=== PATIENT | female | born 1990 | race Hispanic/Latino ===

== ENCOUNTER 2018-04-13 19:09 | Inpatient (IN) | payer MEDICAID, OTHER ==
[~2018-04-13] VITALS: Ht 165.1 cm; Wt 111.1 kg
[2018-04-13 19:29] LABS: BASOPHILS % (AUTO) 0.5 % (0.0-5.0); EOSINOPHILS % (AUTO) 0.1 % (0.0-8.0); HEMATOCRIT 41.4 % (36-48); LYMPHOCYTES % (AUTO) 15.2 % (21.0-51.0); MEAN CORPUSCULAR HEMOGLOBIN 28.9 pg (27.0-33.0); MEAN CORPUSCULAR HGB CONC 34.6 g/dL (32.0-36.0); MEAN CORPUSCULAR VOLUME 83.5 fL (79-99); MONOCYTES % (AUTO) 5.6 % (3.0-13.0); NEUTROPHILS % (AUTO) 78.6 % (40.0-77.0); PLATELET COUNT (AUTO) 160 K/uL (130-400); RED BLOOD CELL COUNT(AUTO) 4.96 MIL/uL (4.00-5.50); RED CELL DISTRIBUTION WIDTH 14.2 % (11.0-15.5); WHITE BLOOD COUNT (AUTO) 12.6 K/uL (4.8-10.8)
[2018-04-13] MEDS ORDERED: CEFTRIAXONE SODIUM 2 GM VIAL ONE (19:34)
[2018-04-13] MEDS ORDERED: ACETAMINOPHEN EXTRA STRENGTH 500 MG TABLET ONE (19:34)
[2018-04-13] MEDS ORDERED: SODIUM CHLORIDE 0.9% 50 ML IV ONE (19:34)
[2018-04-13 19:49] LABS: APPEARANCE,URINE CLEAR (CLEAR); BILIRUBIN,URINE NEGATIVE (NEGATIVE); COLOR,URINE YELLOW (YELLOW); GLUCOSE, URINE (UA) NEGATIVE (NEGATIVE); KETONES,URINE NEGATIVE (NEGATIVE); LEUKOCYTE ESTERASE ,URINE NEGATIVE (NEGATIVE); NITRATE,URINE NEGATIVE (NEGATIVE); OCCULT BLOOD,URINE NEGATIVE (NEGATIVE); PH,URINE 7.5 (5.0-8.0); PROTEIN,URINE NEGATIVE (NEGATIVE)
[2018-04-13 19:53] LABS: HCG,QUAL RESULT NEGATIVE (NEGATIVE)
[2018-04-13] MEDS ORDERED: SODIUM CHLORIDE 0.9% 1000ML 3,000 ML IV ONE (19:53)
[2018-04-13 20:11] LABS: RAPID GROUP A STREP NEGATIVE (NEGATIVE)
[2018-04-13 20:19] LABS: CREATININE 0.9 mg/dL (0.5-1.5); POTASSIUM 3.8 mmol/L (3.5-5.1)
[2018-04-13 20:24] LABS: ALBUMIN 3.8 g/dL (3.5-5.0); BILIRUBIN,TOTAL 0.7 mg/dL (0.2-1.0); TOTAL PROTEIN, SERUM 7.5 g/dL (6.0-8.3)
[2018-04-13] MEDS ORDERED: ONDANSETRON HCL 4 MG/2 ML VIAL ONE (22:52)
[2018-04-13] MEDS ORDERED: MORPHINE SULFATE 4 MG/1ML SYG ONE (22:53)
[2018-04-13 23:26] LABS: GLUCOSE, CSF 68 mg/dL (40-70); TOTAL PROTEIN, CSF 35 mg/dL (15-45)
[2018-04-13 23:51] LABS: APPEARANCE,CSF HAZY (CLEAR); COLOR,CSF PINK (COLORLESS); CSF TUBE NUMBER 1
[2018-04-13 23:52] LABS: CSF BASOPHIL1 0 %; CSF BLAST1 0 %; LYMPHOCYTES1,CSF 47 %; MONOCYTES1,CSF 3 %; NEUTROPHILS1,CSF 50 %; RED BLOOD CELL1,CSF 1368 CMM (0-0); WHITE BLOOD CELL1,CSF 36 CMM (0-5)
[2018-04-14 02:24] VITALS: BP 147/99
[2018-04-14] MEDS ORDERED: ONDANSETRON HCL MDV 20ML 2 MG/ML VIAL IVP PRN (02:45)
[2018-04-14] MEDS: SODIUM CHLORIDE 0.9% 1000ML 1,000 ML IV SCH ×2 (03:00→12:29)
[2018-04-14] MEDS: MORPHINE SULFATE 4 MG/1ML SYG IVP PRN ×4 (03:11→20:54)
[2018-04-14] MEDS: IPRATROPIUM/ALBUTEROL SULFATE 3 ML SOLUTION IH SCH ×5 (06:35→21:55)
[2018-04-14] MEDS: ACETAMINOPHEN 325 MG TAB PO PRN (07:32)
[2018-04-14 08:00] VITALS: BP 135/72
[2018-04-14] MEDS ORDERED: WATER FOR INJECTION,STERILE 20 ML VIAL IVP SCH (09:00)
[2018-04-14 09:28] LABS: HEMATOCRIT 38.9 % (36-48); MEAN CORPUSCULAR HEMOGLOBIN 29.5 pg (27.0-33.0); MEAN CORPUSCULAR HGB CONC 34.9 g/dL (32.0-36.0); MEAN CORPUSCULAR VOLUME 84.5 fL (79-99); NUCLEATED RED BLOOD CELLS 0.1 % (0.0-0.19); PLATELET COUNT (AUTO) 138 K/uL (130-400); RED BLOOD CELL COUNT(AUTO) 4.61 MIL/uL (4.00-5.50); RED CELL DISTRIBUTION WIDTH 14.2 % (11.0-15.5)
[2018-04-14] MEDS: ENOXAPARIN SODIUM 40 MG/0.4 ML SYRINGE SQ SCH (09:29)
[2018-04-14] MEDS: FAMOTIDINE/PF 20 MG/2 ML VIAL IV SCH ×2 (09:30→20:54)
[2018-04-14] MEDS: CEFTRIAXONE SODIUM 2 GM VIAL IVP SCH (09:31)
[2018-04-14 09:42] LABS: CREATININE 0.8 mg/dL (0.5-1.5); POTASSIUM 3.5 mmol/L (3.5-5.1)
[2018-04-14 09:44] LABS: HEMOGLOBIN A1C 5.5 % (4.0-6.0)
[2018-04-14 11:00] VITALS: BP 139/76
[2018-04-14] MEDS: ONDANSETRON HCL 4 MG/2 ML VIAL IVP PRN (11:03)
[2018-04-14 16:00] VITALS: BP 123/66
[2018-04-14 20:00] VITALS: BP 129/68
[2018-04-15] VITALS (7 sets, daily range): BP systolic 108–142; BP diastolic 53–86
[2018-04-15] MEDS: IPRATROPIUM/ALBUTEROL SULFATE 3 ML SOLUTION IH SCH ×6 (01:10→22:15)
[2018-04-15] MEDS: ACETAMINOPHEN 325 MG TAB PO PRN (01:20)
[2018-04-15] MEDS ORDERED: POTASSIUM CHLORIDE 20MEQ/100ML 100 ML IV PRN (02:00)
[2018-04-15] MEDS ORDERED: POTASSIUM CHLORIDE 10% ELIXIR 20 MEQ/15 ML UDCUP PO PRN (02:00)
[2018-04-15] MEDS ORDERED: KETOROLAC TROMETHAMINE 30MG/ML IM PRN (02:00)
[2018-04-15] MEDS ORDERED: LIDOCAINE HCL-MPF 1% 2ML VIAL IVP PRN (02:00)
[2018-04-15] MEDS ORDERED: POTASSIUM CHLORIDE 20 MEQ ERTAB PO PRN (02:00)
[2018-04-15] MEDS ORDERED: GUAIFENESIN-DM 200/20 MG 10 ML ONE (02:01)
[2018-04-15] MEDS: SODIUM CHLORIDE 0.9% 1000ML 1,000 ML IV SCH ×2 (02:03→12:28)
[2018-04-15 07:10] LABS: BASOPHILS % (AUTO) 0.2 % (0.0-5.0); EOSINOPHILS % (AUTO) 0.2 % (0.0-8.0); LYMPHOCYTES % (AUTO) 27.5 % (21.0-51.0); MEAN CORPUSCULAR HEMOGLOBIN 28.8 pg (27.0-33.0); MEAN CORPUSCULAR HGB CONC 34.2 g/dL (32.0-36.0); MEAN CORPUSCULAR VOLUME 84.1 fL (79-99); MONOCYTES % (AUTO) 7.9 % (3.0-13.0); NEUTROPHILS % (AUTO) 64.2 % (40.0-77.0); PLATELET COUNT (AUTO) 117 K/uL (130-400); RED BLOOD CELL COUNT(AUTO) 4.64 MIL/uL (4.00-5.50); WHITE BLOOD COUNT (AUTO) 5.4 K/uL (4.8-10.8)
[2018-04-15 07:25] LABS: CREATININE 0.7 mg/dL (0.5-1.5); POTASSIUM 3.7 mmol/L (3.5-5.1)
[2018-04-15] MEDS: CEFTRIAXONE SODIUM 2 GM VIAL IVP SCH (08:25)
[2018-04-15] MEDS: FAMOTIDINE/PF 20 MG/2 ML VIAL IV SCH ×2 (08:25→22:58)
[2018-04-15] MEDS: ENOXAPARIN SODIUM 40 MG/0.4 ML SYRINGE SQ SCH (08:26)
[2018-04-15] MEDS: KETOROLAC TROMETHAMINE 30MG/ML IV PRN ×3 (08:26→22:58)
[2018-04-15] MEDS: GUAIFENESIN-DM 200/20 MG 10 ML PO PRN ×3 (08:41→16:42)
[2018-04-15] MEDS: CEFEPIME HCL 1 GM VIAL IVP SCH (16:41)
[2018-04-15] MEDS ORDERED: CEFEPIME 1GM+NS 50ML 50 ML IV SCH (22:00)
[2018-04-15] MEDS: ONDANSETRON HCL 4 MG/2 ML VIAL IVP PRN (22:57)
[2018-04-15] MEDS: DOXYCYCLINE HYCLATE 100 MG TABLET PO SCH (22:59)
[2018-04-16] MEDS: IPRATROPIUM/ALBUTEROL SULFATE 3 ML SOLUTION IH SCH (02:28)
[2018-04-16] MEDS: CEFEPIME HCL 1 GM VIAL IVP SCH ×3 (02:45→16:12)
[2018-04-16] MEDS: SODIUM CHLORIDE 0.9% 1000ML 1,000 ML IV SCH ×3 (02:59→18:45)
[2018-04-16 03:00] VITALS: BP 108/71
[2018-04-16] MEDS: ACETAMINOPHEN 325 MG TAB PO PRN ×2 (03:00→18:31)
[2018-04-16] MEDS: IPRATROPIUM 0.5 MG/2.5 ML INH IH SCH ×4 (06:26→18:10)
[2018-04-16 07:56] VITALS: BP 131/79
[2018-04-16] MEDS: DOXYCYCLINE HYCLATE 100 MG TABLET PO SCH (09:05)
[2018-04-16] MEDS: FAMOTIDINE/PF 20 MG/2 ML VIAL IV SCH (09:05)
[2018-04-16] MEDS: ENOXAPARIN SODIUM 40 MG/0.4 ML SYRINGE SQ SCH (09:05)
[2018-04-16] MEDS: KETOROLAC TROMETHAMINE 30MG/ML IV PRN (09:12)
[2018-04-16] MEDS ORDERED: DOXY100C2 PO (10:03)
[2018-04-16] MEDS ORDERED: CEFU500T67 PO (10:03)
[2018-04-16] MEDS ORDERED: PROMETHAZINE HCL 25 MG/ML 1ML AMPULE IM PRN (11:00)
[2018-04-16 11:34] VITALS: BP 142/73
[2018-04-16] MEDS ORDERED: ACET-2247 PO (15:03)
[2018-04-16 16:24] VITALS: BP 136/82
== END 2018-04-16 18:30 | disposition home or self-care (01) | DRG 75 ==
LOC: EDH 19:09 → EDHIP 19:10 → OBSVTOIN 19:10 → 3CH 04-14 01:51
PROVIDERS: ADMIT Internal Medicine Nephrology; ATTEND Internal Medicine Nephrology
DX: A87.9 Viral meningitis, unspecified (principal); J18.9 Pneumonia, unspecified organism; Z68.41 Body mass index [BMI] 40.0-44.9, adult; J06.9 Acute upper respiratory infection, unspecified; J45.909 Unspecified asthma, uncomplicated; Z82.49 Family history of ischemic heart disease and other diseases of the circulatory system; Z83.3 Family history of diabetes mellitus; E66.01 Morbid (severe) obesity due to excess calories; J01.90 Acute sinusitis, unspecified
CPT/HCPCS: 36415; 70450; 70480; 71045; 71250; 80048; 80053; 80061; 81003; 81025; 82945; 83036; 83605; 84157; 85025; 85027; 87040; 87071; 87205; 87804; 87880; 89051; 93005; 94640; 94664; 99291; A4218; J0692; J0696; J1650; J1885; J2270; J2405; J3490; J7030

== ENCOUNTER 2018-04-24 12:16 | Emergency (ER) | payer SELFPAY ==
[~2018-04-24 12:16] MED LIST: ACET-2247 PO; CEFU500T67 PO; DOXY100C2 PO
[2018-04-24] MEDS ORDERED: KETOROLAC TROMETHAMINE 30MG/ML ONE (13:09)
[2018-04-24] MEDS ORDERED: SODIUM CHLORIDE 0.9% 1000ML 1,000 ML IV ONE ×2 (13:09→15:37)
[2018-04-24 13:29] LABS: BASOPHILS % (AUTO) 0.4 % (0.0-5.0); HEMATOCRIT 41.9 % (36-48); LYMPHOCYTES % (AUTO) 21.6 % (21.0-51.0); MEAN CORPUSCULAR HEMOGLOBIN 28.6 pg (27.0-33.0); MEAN CORPUSCULAR HGB CONC 34.5 g/dL (32.0-36.0); MONOCYTES % (AUTO) 9.7 % (3.0-13.0); NEUTROPHILS % (AUTO) 67.3 % (40.0-77.0); PLATELET COUNT (AUTO) 187 K/uL (130-400); RED BLOOD CELL COUNT(AUTO) 5.05 MIL/uL (4.00-5.50); RED CELL DISTRIBUTION WIDTH 13.6 % (11.0-15.5); WHITE BLOOD COUNT (AUTO) 6.8 K/uL (4.8-10.8)
[2018-04-24 13:35] LABS: CREATININE 0.7 mg/dL (0.5-1.5); POTASSIUM 3.8 mmol/L (3.5-5.1)
[2018-04-24 13:41] LABS: ALBUMIN 3.9 g/dL (3.5-5.0); BILIRUBIN,TOTAL 0.8 mg/dL (0.2-1.0); TOTAL PROTEIN, SERUM 7.5 g/dL (6.0-8.3)
[2018-04-24 13:54] LABS: INR 0.97 (0.85-1.15); PARTIAL THROMBOPLASTIN TIME 27.3 SEC (26.3-35.5); PROTHROMBIN TIME 10.2 SEC (9.6-11.6)
[2018-04-24] MEDS ORDERED: IOHEXOL-350 75 ML VIAL IV ONE (14:36)
[2018-04-24 15:02] LABS: APPEARANCE,URINE CLEAR (CLEAR); BILIRUBIN,URINE SMALL (NEGATIVE); COLOR,URINE YELLOW (YELLOW); GLUCOSE, URINE (UA) NEGATIVE (NEGATIVE); KETONES,URINE NEGATIVE (NEGATIVE); LEUKOCYTE ESTERASE ,URINE NEGATIVE (NEGATIVE); NITRATE,URINE NEGATIVE (NEGATIVE); OCCULT BLOOD,URINE MODERATE (NEGATIVE); PROTEIN,URINE 30 (NEGATIVE)
[2018-04-24 15:04] LABS: HCG,QUAL RESULT NEGATIVE (NEGATIVE)
[2018-04-24 15:07] LABS: AMORPHOUS SEDIMENT,UR Moderate /LPF (None Seen); BACTERIA,URINE Moderate /HPF (None Seen); RBC,URINE 0-1 /HPF (0-1); WBC,URINE 0-1 /HPF (0-1)
== END 2018-04-24 17:00 | disposition home or self-care (01) ==
LOC: EDH 12:16
DX: K64.9 Unspecified hemorrhoids (principal); R10.32 Left lower quadrant pain
CPT/HCPCS: 36415; 71045; 74177; 80053; 81001; 81025; 82550; 83605; 83690; 84484; 84703; 85025; 85610; 85730; 87040 ×2; 93005; 96374; 99285; J1885; J7030 ×2; Q9967

== ENCOUNTER 2019-06-26 06:14 | Emergency (ER) | payer OTHER ==
[2019-06-26 06:57] LABS: BASOPHILS % (AUTO) 0.7 % (0.0-5.0); EOSINOPHILS % (AUTO) 2.3 % (0.0-8.0); HEMATOCRIT 41.6 % (36-48); MEAN CORPUSCULAR HEMOGLOBIN 29.1 pg (27.0-33.0); MEAN CORPUSCULAR HGB CONC 34.4 g/dL (32.0-36.0); MEAN CORPUSCULAR VOLUME 84.6 fL (79-99); MONOCYTES % (AUTO) 7.7 % (3.0-13.0); NEUTROPHILS % (AUTO) 50.3 % (40.0-77.0); PLATELET COUNT (AUTO) 180 K/uL (130-400); RED BLOOD CELL COUNT(AUTO) 4.92 MIL/uL (4.00-5.50); RED CELL DISTRIBUTION WIDTH 13.9 % (11.0-15.5)
[2019-06-26 07:05] LABS: APPEARANCE,URINE Clear (CLEAR); BILIRUBIN,URINE Negative (NEGATIVE); COLOR,URINE Yellow (YELLOW); GLUCOSE, URINE (UA) Negative (NEGATIVE); KETONES,URINE Negative (NEGATIVE); LEUKOCYTE ESTERASE ,URINE Negative (NEGATIVE); NITRATE,URINE Negative (NEGATIVE); OCCULT BLOOD,URINE Negative (NEGATIVE); PROTEIN,URINE Negative (NEGATIVE); UROBILINOGEN,URINE 0.2 mg/dL (0.2-1.0)
[2019-06-26] MEDS ORDERED: ACETAMINOPHEN EXTRA STRENGTH 500 MG TABLET ONE (07:14)
[2019-06-26] MEDS ORDERED: ONDANSETRON ODT 4 MG TAB ONE (07:14)
[2019-06-26 08:12] LABS: CREATININE 0.8 mg/dL (0.5-1.5)
[2019-06-26 08:18] LABS: ALBUMIN 3.8 g/dL (3.5-5.0); BILIRUBIN,DIRECT 0.1 mg/dL (0.0-0.3); BILIRUBIN,TOTAL 0.4 mg/dL (0.2-1.0); TOTAL PROTEIN, SERUM 7.8 g/dL (6.0-8.3)
[2019-06-26] MEDS ORDERED: SODIUM CHLORIDE 0.9% 1000ML 1,000 ML IV ONE (08:35)
[2019-06-26] MEDS ORDERED: IOHEXOL-350 75 ML VIAL IV ONE (09:30)
== END 2019-06-26 12:57 | disposition home or self-care (01) ==
LOC: EDH 06:14
DX: R51 Headache (principal); H53.8 Other visual disturbances; R11.0 Nausea; E11.9 Type 2 diabetes mellitus without complications; I10 Essential (primary) hypertension; I25.2 Old myocardial infarction; Z90.49 Acquired absence of other specified parts of digestive tract
CPT/HCPCS: 36415; 70450; 70496; 70498; 80048; 80076; 81003; 81025; 85025; 99285; J7030; Q9967

== ENCOUNTER 2019-11-26 21:49 | Emergency (ER) | payer OTHER ==
[2019-11-26 23:11] LABS: RAPID GROUP A STREP NEGATIVE (NEGATIVE)
[2019-11-26 23:11] LABS: BASOPHILS % (AUTO) 0.2 % (0.0-5.0); EOSINOPHILS % (AUTO) 0.4 % (0.0-8.0); HEMATOCRIT 42.1 % (36-48); LYMPHOCYTES % (AUTO) 18.8 % (21.0-51.0); MEAN CORPUSCULAR HEMOGLOBIN 28.2 pg (27.0-33.0); MEAN CORPUSCULAR HGB CONC 33.5 g/dL (32.0-36.0); MEAN CORPUSCULAR VOLUME 84.2 fL (79-99); MONOCYTES % (AUTO) 7.8 % (3.0-13.0); NEUTROPHILS % (AUTO) 72.5 % (40.0-77.0); PLATELET COUNT (AUTO) 155 K/uL (130-400); RED CELL DISTRIBUTION WIDTH 13.2 % (11.0-15.5); WHITE BLOOD COUNT (AUTO) 9.6 K/uL (4.8-10.8)
[2019-11-26 23:27] LABS: INR 0.96 (0.85-1.15); PARTIAL THROMBOPLASTIN TIME 27.9 SEC (26.3-35.5); PROTHROMBIN TIME 10.1 SEC (9.6-11.6)
[2019-11-26 23:28] LABS: CARBON DIOXIDE 27 mmol/L (21-32); CHLORIDE 102 mmol/L (101-111); CREATININE 0.8 mg/dL (0.5-1.5); GLOMERULAR FILTR. RATE CALC 90 mL/min (>60); GLUCOSE,RANDOM 122 mg/dL (70-105); POTASSIUM 3.7 mmol/L (3.5-5.1); SODIUM SERUM 139 mmol/L (136-145); UREA NITROGEN, BLOOD 11 mg/dL (7-18)
[2019-11-26 23:48] LABS: ALANINE AMINOTRANSFERASE 92 U/L (12-78); ASPARTATE AMINOTRANSFERASE 48 U/L (10-37); BILIRUBIN,TOTAL 0.7 mg/dL (0.2-1.0); CREATINE KINASE, TOTAL 91 U/L (21-232); MYOGLOBIN 28 ng/mL (10-92); TROPONIN I < 0.04 ng/mL (0.00-0.06)
[2019-11-27] MEDS ORDERED: SODIUM CHLORIDE 0.9% 1000ML 1,000 ML IV ONE (00:03)
[2019-11-27] MEDS ORDERED: IPRATROPIUM/ALBUTEROL SULFATE 3 ML SOLUTION IH ONE (00:07)
== END 2019-11-27 01:27 | disposition home or self-care (01) ==
LOC: EDH 21:49
DX: J20.9 Acute bronchitis, unspecified (principal); B34.9 Viral infection, unspecified; I25.2 Old myocardial infarction; I10 Essential (primary) hypertension; E11.9 Type 2 diabetes mellitus without complications; Z90.49 Acquired absence of other specified parts of digestive tract
CPT/HCPCS: 36415; 71045; 80053; 82550; 83605; 83874; 84145; 84484; 85025; 85610; 85730; 87040; 87804 ×2; 87880; 93005; 94640; 99285; J7030

== ENCOUNTER 2022-11-09 18:34 | Emergency (ER) | payer SELFPAY ==
[~2022-11-09] VITALS: Ht 165.1 cm; Wt 113.4 kg
[~2022-11-09 18:34] MED LIST changes: -DOXY100C2 PO; +DOXY100C5 PO
[2022-11-09] MEDS ORDERED: KETOROLAC 30MG VIAL (30MG/ML) IM ONE (21:00)
[2022-11-09] MEDS ORDERED: TRAM50TA4 PO (22:28)
[2022-11-09 22:39] VITALS: BP 134/66
== END 2022-11-09 22:48 | disposition home or self-care (01) ==
LOC: EDH 18:34
DX: M25.561 Pain in right knee (principal); M54.9 Dorsalgia, unspecified; M79.89 Other specified soft tissue disorders; J45.909 Unspecified asthma, uncomplicated; E11.9 Type 2 diabetes mellitus without complications; Z90.89 Acquired absence of other organs; W01.0XXA Fall on same level from slipping, tripping and stumbling without subsequent striking against object, initial encounter; Y93.89 Activity, other specified; Y92.89 Other specified places as the place of occurrence of the external cause; Y99.8 Other external cause status
CPT/HCPCS: 99284; 73600; 73501; 73562; 72100; 96372; J1885